=== PATIENT | male | born 1975 | race Caucasian/White ===

== ENCOUNTER 2019-09-26 09:10 | Day surgery (SDC) | payer OTHER ==
[~2019-09-26] VITALS: Ht 175.3 cm; Wt 90.9 kg
[2019-09-26] MEDS ORDERED: LIDOCAINE-MPF 1%, 2ML INFIL STA (09:47)
[2019-09-26] MEDS ORDERED: LACTATED RINGERS 1,000 ML IV STA (09:47)
[2019-09-26] MEDS ORDERED: CHLORHEXIDINE 15 ML UDC MM STA (09:47)
[2019-09-26] MEDS ORDERED: NAPR220C2 PO (09:55)
[2019-09-26] MEDS ORDERED: IBUP-1222 PO (09:55)
[2019-09-26 09:56] VITALS: BP 145/85
[2019-09-26] MEDS ORDERED: CHLORHEXIDINE 15 ML UDC ONE (10:00)
[2019-09-26] MEDS ORDERED: MIDAZOLAM 1 MG/ML, 2ML ONE (10:10)
[2019-09-26] MEDS ORDERED: FENTANYL PF 250 MCG/5ML ONE (10:11)
[2019-09-26] MEDS ORDERED: LACTATED RINGERS 1,000 ML IV SCH (10:30)
[2019-09-26] MEDS ORDERED: OXYcodone 5 MG/5 ML ORAL.SOL UDC PO PRN (11:00)
[2019-09-26] MEDS ORDERED: PROMETHAZINE 25 MG/ML, 1ML IVPush PRN (11:00)
[2019-09-26] MEDS ORDERED: ONDANSETRON 2MG/ML, 2ML IVPush PRN (11:00)
[2019-09-26] MEDS ORDERED: LORazepam 2 MG/ML, 1ML IVPush PRN (11:00)
[2019-09-26] MEDS ORDERED: ACETAMINOPHEN 325 MG TABLET PO PRN (11:00)
[2019-09-26] MEDS ORDERED: PROMETHAZINE 25 MG SUPP PR PRN (11:00)
[2019-09-26] MEDS ORDERED: ROCURONIUM 10 MG/ML,10ML ONE (11:05)
[2019-09-26] MEDS ORDERED: CLINDAMYCIN 150 MG/ML, 6ML ONE (11:13)
[2019-09-26] MEDS ORDERED: DEXAMETHASONE 4 MG/ML, 1ML ONE (12:05)
[2019-09-26] MEDS ORDERED: ONDANSETRON 2MG/ML, 2ML ONE ×2 (12:05→13:10)
[2019-09-26] MEDS ORDERED: PROPOFOL 10 MG/ML, 20ML ONE (12:05)
[2019-09-26] MEDS ORDERED: CEFAZOLIN 1,000 MG ONE (12:05)
[2019-09-26] MEDS ORDERED: FENTANYL PF 100 MCG/2ML ONE (12:33)
[2019-09-26] MEDS ORDERED: OXYcodone 5 MG/5 ML ORAL.SOL UDC ONE (12:33)
[2019-09-26] MEDS: FENTANYL PF 100 MCG/2ML IV PRN ×2 (12:37→12:43)
[2019-09-26] MEDS ORDERED: HYDROmorphone 1 MG/ML, 1ML INJ ONE (12:48)
[2019-09-26] MEDS: HYDROmorphone 1 MG/ML, 1ML INJ IVPush PRN ×2 (12:51→12:59)
[2019-09-26] MEDS ORDERED: PROMETHAZINE 25 MG SUPP PR ONE (17:13)
== END 2019-09-26 18:25 | disposition home or self-care (01) ==
LOC: OUT 09:10
PROVIDERS: ATTEND Orthopaedic Surgery
DX: M21.42 Flat foot [pes planus] (acquired), left foot (principal); Z11.59 Encounter for screening for other viral diseases; M65.872 Other synovitis and tenosynovitis, left ankle and foot; M77.42 Metatarsalgia, left foot; M79.672 Pain in left foot; G47.30 Sleep apnea, unspecified; F17.210 Nicotine dependence, cigarettes, uncomplicated; Z88.0 Allergy status to penicillin; Z72.89 Other problems related to lifestyle; Z98.890 Other specified postprocedural states; Z79.899 Other long term (current) drug therapy
CPT/HCPCS: 27687; 28072; 28238; 28308; 64445; 87635; 88305; C1713; J0690; J1100; J1170; J2250; J2405; J2704; J3010; J7120; U0001-CS